=== PATIENT | male | born 1975 | race Caucasian/White ===

== ENCOUNTER 2024-08-15 11:42 | Inpatient (IN) ==
--- OUTSIDE RECORDS SUMMARY | 2024-08-15 11:56 | External Medical Summary | Summary of Care ---
Author Name Unknown Organization [facility] Address [address] [place] [address] Phone [phone] Care Team Providers Care Metal Machine Setter Name Role Phone Maki Buckley PA-C Primary Care Pro vider Encounter Details Date Type Department Care Team (Late st Contact Info) Description 08/13/2024 Orders Only Radiology, [facility] [address] [place] [id number] Requisition, External Radiology [address] [place] [address] Cough, unspecified*; Dyspnea, unspecified Allergies No known active allergiesdocumented as of this encounter (statuses as of 08/13/2024) Medications Medication Sig Dispensed Refills Start Date End Date Status metaxalone (SKELAXIN) 800 MG TabletIndications:Degene ration of lumbar or lumbosacral intervertebral disc,Cervicalgia Take one tablet by mouth up to 4 times a day as needed for muscle spasm On an empty stomach 40 Tab 2 01/04/2016 Active etodolac XL (LODINE XL) 500 MG TB24 Take 2 Tabs by mouth daily. 60 Tab 1 02/27/2017 Active HYDROcodone-acetaminophe n 5-325 mg per tab 5-325 MG per tablet Take 1 Tab by mouth every 6 hours as needed for Pain, Mild. 36 Tab 02/27/2017 Active documented as of this encounter (statuses as of 08/13/2024) Active Problems Problem Noted Date Diagnosed Date S/P nasal septoplasty 02/02/2015 Subjective tinnitus 12/23/2014 Sensorineural hearing loss, bilateral 12/23/2014 Nasal septal deviation 11/09/2014 Otitis externa due to herpes zoster Dizziness and giddiness Degeneration of lumbar or lumbosacral interverte bral disc Cervicalgia documented as of this encounter (statuses as of 08/13/2024) Social History Tobacco Use Types Packs/Day Years Used Date Smoking Tobacco: Never Smokeless Tobacco: Never Alcohol Use Standard Drinks/Week Comments No 0 (1 standard drink = 0.6 oz pur e alcohol) Utilities Answer Date Recorded Do you have trouble paying y our heating, water, or electric bill? (Adult - for ages 18 years and over) Not on file 2024 Is your family able to pay t he heat, water, or electric bill? (Household - for ages 0-17 years) Not on file 2024 Does your family have access to good internet? (Household - for ages 0-17 years) Not on file 2024 Social Connections Answer Date Recorded How often do you feel lonely or isolated from those around you? (Adult - for ages 18 years and over) Not on file 2024 Sex and Gender Information Value Date Recorded Sex Assigned at Not on file Gender Identity Not on file Sexual Orientation Not on file Job Start Date Occupation Industry Not on file Not on file Not on file documented as of this encounter Plan of Treatment Pending Results Name Type Priority Associated Diagnoses Date /Time XR CHEST 2 VIEWS Medical Imaging Routine Cough, unspecified Dyspnea, unspecified 08/13/2024 10:01 AM EDT Health Maintenance Due Date Last Done Comments HIV Screening 1988 Hepatitis C Screening 1991 DTap/Tdap Vaccines (1 - Tdap) 1992 Hepatitis B Vaccine (1 of 3 - 19+ 3-dose series) 1992 Depression Screening 01/04/2017 01/04/2016 Cologuard 2018 Colonoscopy 2018 Colorectal Cancer Screening 2018 Fecal Occult Blood Test 2018 Sigmoidoscopy 2018 Zoster Vaccines (1 of 2) 2023 Lipid Panel 06/19/2023 06/19/2018 COVID-19 Vaccine (4 - 2023-2 5 season) 2024 10/02/2021, 03/24/2021, 03/03/2021 Influenza Vaccine (FLU shot) (#1) 2024 HPV (Gardasil) Vaccine Aged Out No lo nger eligible based on patient's age to complete this topic MENINGOCOCCAL (MENACTRA/MENVEO) Aged Out No longer eligible b ased on patient's age to complete this topic Pneumococcal Vaccine: Pediatrics (0 to 5 Years) and At-Risk Patients (6 to 64 Years) Aged Out No longer eligible b ased on patient's age to complete this topic documented as of this encounter Medical Devices Not on filedocumented as of this encounter Visit Diagnoses Diagnosis Cough, unspecified- Primary Dyspnea, unspecified documented in this encounter Care Teams Metal Machine Setter Relationship Specialty Start Date End Date Maki Buckley PA-C PCP - General Physician Corrosion Engineer 08/08/18 documented as of this encounter
--- OUTSIDE RECORDS SUMMARY | 2024-08-15 11:56 | External Medical Summary | Summary of Care ---
Author Name Unknown Organization [facility] Address [address] [place] [address] Phone [phone] Care Team Providers Care Damascener Name Role Phone Maki Buckley PA-C Primary Care Pro vider Reason for Visit * Reason Onset Date Comments MyCode Consent 08/13/2024 Encounter Details Date Type Department Care Team (Late st Contact Info) Description 08/13/2024 Orders Only [facility] Department [address] [place], [place] [id number] Cristel Pinon CHRA MyCode Research Other*[id number]* Allergies No known active allergiesdocumented as of [...] on file documented as of this encounter Progress Notes * Cristel Pinon CHRA - 08/13/2024 10:01 AM EDT MyCode Consent Documentation Gaudencio Gottlieb Marjorie provided consent/authorization to participate in the [employer]. documented in this encounter Plan of Treatment Scheduled Orders Name Type Priority Associated Diagnoses Orde r Schedule MYCODE INITIAL ADULT Lab Routine MyCode Research Other*[id number] Expected: 08/13/2024 (Approximate), Expires: 09/02/2025 Health Maintenance Due Date Last Done Comments HIV Screening 1988 Hepatitis C Screening 1991 DTap/Tdap Vaccines (1 - Tdap) 1992 Hepatitis B Vaccine (1 of 3 - 19+ 3-dose series) 1992 Depression Screening 01/04/2017 01/04/2016 Cologuard 2018 Colonoscopy 2018 Colorectal Cancer Screening 2018 Fecal Occult Blood Test 2018 Sigmoidoscopy 2018 Zoster Vaccines (1 of 2) 2023 Lipid Panel 06/19/2023 06/19/2018 COVID-19 Vaccine (2023-2 5 season) 2024 10/02/2021, 03/24/2021, 03/03/2021 Influenza [...] as of this encounter Visit Diagnoses Diagnosis MyCode Research Other*[id number]- Primary documented in this encounter Care Teams Damascener Relationship Specialty Start Date End Date Maki Buckley PA-C PCP - General Physician Ferry Boat Captain 08/08/18 documented as of this encounter
--- NOTE | 2024-08-15 11:58 | Emergency Department Note ---
Impression & Plan CAP (community acquired pneumonia), Transaminitis, Dyspnea, Hypoxia ED Provider Note NAME: MICHAEL MENESES AGE: 49 SEX: M : 1975 ARRIVES VIA: Walk-In INFORMANT: Patient, ED PROVIDER(S): Zack Downey MD CHIEF COMPLAINT: Shortness of breath MEDICAL DECISION MAKING: Patient presents due to concern for worsening dyspnea. IV was established and blood work is obtained along with an EKG troponin chest x-ray BioFire also obtained patient was treated symptomatically with DuoNeb treatments IV fluids and steroids. Patient's blood work shows a normal white count H&H and platelet count kidney function is unremarkable. Mild transaminitis with an AST and ALT of 49 and 67 respectively. No sore throat. BioFire negative. Chest x-ray does show a left upper lobe pneumonia. Patient did undergo an ambulatory pulse ox trial and did desat into the mid to high 80s. The patient is willing to stay in hospital at this time. Patient was ordered IV Rocephin and p.o. azithromycin. Xopenex also ordered as a treatment via nebulizer. I did speak the on-call hospitalist service Dr. Faith and the patient was admitted to the medicine service. Critical Care: I have personally spent 35 minutes of critical care time in direct management of this patient. This includes bedside care, interpretation of diagnostic studies, and testing, discussion with consultants, patient, and family members, and other require inpatient management activities. This 35 minutes is in excess of all separately billable procedures. Discussion w/ other healthcare providers: Dr. Faith inpatient medicine service Prior /Outside records reviewed: None Differential diagnosis: Reactive airway disease, pneumonia, pneumothorax, COPD, CHF, ACS, pulmonary embolism, musculoskeletal, GERD as well as other pathologies were considered. Diagnostics, as interpreted by me: ECG: Sinus with PACs pattern of bigeminy, rate of 93, normal intervals, left axis deviation no ST elevations. Cardiac monitoring: An order was placed for continuous cardiac monitoring. The monitor shows a rate of 97 with sinus rhythm. Patient was placed on pulse oximetry Medical decision rules: None Imaging studies: I informally interpreted the patient's chest x-ray shows left upper lobe pneumonia with formal report to follow. HPI: Patient presents due to concern for shortness of breath. Patient reports that he developed some cough and respiratory symptoms beginning on Saturday. Patient states that they progressively got worse over the week was seen by his PCP on started on doxycycline and given an albuterol inhaler. Patient has been alternating ibuprofen and Tylenol every 4 hours for fever with a Tmax of 103. Patient states that he does have a centralized chest pressure that he has had with his illness but no exertional change no leg swelling or calf pain no history of DVT or PE and the patient denies any recent surgeries procedures or hospitalizations. Patient denies any recent prolonged car plane travel. Patient reports that the albuterol was not helping at all except this morning when he woke he felt very winded and had associated difficulty with breathing and the albuterol did seem to help. Patient states he has had slight productive cough but no reported discolored sputum. Patient is a non-smoker. PAST MEDICAL HISTORY: See Below PAST SURGICAL HISTORY: See Below SOCIAL HISTORY: See Below HOME MEDICATIONS: See Below ALLERGIES: See Below VITALS: See Below PHYSICAL EXAMINATION: GENERAL: Conversational dyspnea noted, nontoxic. EYE EXAM: Normal conjunctiva. PERRL, no anisocoria and EOM's grossly intact w/o pain. OROPHARYNX: Moist mucus membranes, grossly normal dentition. NECK: Trachea midline, no stridor. LUNGS: Slight expiratory wheeze in the upper lung pike. No obvious rhonchi or crackles. Increased work of breathing. HEART: NSR, no MRG. ABDOMEN: Abdomen soft, non-tender, no masses, no rebound or guarding. BACK: No CVA TTP. SKIN: No rashes and no bruising. UPPER EXTREMITIES: Upper extremities are grossly normal. LOWER EXTREMITIES: Grossly normal, no edema. Negative Homans' sign bilaterally. Reactive airway disease, pneumonia, pneumothorax, COPD, CHF, ACS, pulmonary embolism, musculoskeletal, GERD as well as other pathologies were considered. NEURO EXAM: A&O x3, cranial nerves II-XII grossly intact, normal speech, moves all 4 extremities. Past Med/Surg History Problem List (Updated 08/16/24 @ 13:09 by Zack Downey MD) Hypoxia (Acute) Dyspnea (Acute) Transaminitis (Acute) CAP (community acquired pneumonia) (Acute) Well adult exam Pain in Achilles tendon Pain of left heel Chronic back pain Lumbar strain LLQ abdominal pain Encounter for pre-operative examination Medical History (Updated 08/16/24 @ 13:09 by Zack Downey MD) History of anesthesia reaction GENERALIZED BODY ACHES FOR COUPLE DAYS POST OP-WAS TOLD FROM ANESTHESIA-3 YRS AGO PHILIP THOMAS Trigger finger RIGHT Hyperlipidemia NO MEDS-DIET MANAGED Surgical History History of nasal septoplasty Family History Father Family history of diabetes mellitus Social History Smoking Status: Never smoker Second Hand Exposure: No; Do You Dip or Chew Tobacco: No; Tobacco Cessation Education Requested by Patient: No Hx Alcohol Use: No Hx Substance Use: No Preferred Language: Ukrainian Communication Ability: Effective Technical Service Representative Required: No Beliefs That Will Affect Care: None marital status: Current Living Situation: Spouse current occupational status: employed current occupation: Electrical estimater How many Children do You have: 2 Other Information That Helps Us Care for You: No Feels Safe at Home: Yes Childhood Exposure to Second-Hand Smoke: No Diet: regular caffeine: Yes Dental Care, Regularly: Yes Physical Activity Frequency: Does not Exercise Seatbelt Use: always Assistive Devices: None Allergies Allergies Allergy/AdvReac Type Severity Reaction Status Date / Time No Known Allergies Allergy Verified 07/27/24 08:54 Home Meds Previous Rx's Medication Instructions Recorded ibuprofen 800 mg tablet 800 mg PO BID PRN Pain #60 tabs 02/19/22 metaxalone 800 mg tablet 800 mg PO TID PRN Pain #15 tabs 07/24/22 famotidine 20 mg tablet 20 mg PO BID #60 tabs 07/27/24 albuterol sulfate 90 mcg/actuation 2 puff inhalation QID PRN 08/13/24 aerosol inhaler shortness of breath or wheezing #8.5 grams doxycycline hyclate 100 mg capsule 100 mg PO BID 5 days #10 caps 08/13/24 Results & Data (ED) Vital Signs Vital Signs - 24 hr 08/15/24 13:22 08/15/24 13:28 08/15/24 13:30 Pulse Rate 72 96 H 78 Pulse Rate from SpO2 Sensor 77 80 Pulse Rhythm Regular Respiratory Rate 23 18 19 Blood Pressure 131/80 125/72 Blood Pressure Mean 97 99 Pulse Oximetry 94 94 Oxygen Delivery Method Room Air 08/15/24 14:00 08/15/24 14:30 Pulse Rate 101 H 101 H Pulse Rate from SpO2 Sensor 101 H 102 H Pulse Rhythm Respiratory Rate 25 H 26 H Blood Pressure 129/79 152/74 H Blood Pressure Mean 100 100 Pulse Oximetry 99 92 Oxygen Delivery Method Home Medications Current Medication List: was personally reviewed by me Laboratory Data Attestation: I reviewed the patient's lab results. 08/16/24 05:40 08/16/24 05:40 Lab Results 08/15/24 08/15/24 Range/Units 12:47 13:15 WBC 8.87 (4.8-10.8) K/ul RBC 5.04 (4.70-6.10) M/uL Hgb 14.6 (14.0-18.0) g/dl Hct 43.5 (42.0-52.0) % MCV 86.3 (80.0-100.0) fL MCH 29.0 (25.0-34.0) pg MCHC 33.6 (32.0-36.0) g/dL RDW Std Deviation 42.1 (36.4-46.3) fL RDW Coeff of Ama 13.3 (11.5-14.5) % Plt Count 370 (130-400) K/uL MPV 8.7 L (9.4-12.4) fL Immature Gran % (Auto) 0.2 % Neut % (Auto) 73.5 % Lymph % (Auto) 13.1 % [place] % (Auto) 11.7 % Eos % (Auto) 0.9 % Baso % (Auto) 0.6 % Neut # (Auto) 6.52 H (1.40-6.50) K/uL Lymph # (Auto) 1.16 L (1.20-3.40) K/uL [place] # (Auto) 1.04 H (0.11-0.59) K/uL Eos # (Auto) 0.08 (0.00-0.50) K/uL Baso # (Auto) 0.05 (0.00-0.20) K/uL Immature Gran # (Auto) 0.02 (0.01-0.20) K/uL PT 10.8 (9.0-12.0) Seconds INR 1.0 (0.9-1.1) APTT 30 (21-31) Seconds PTT Ratio 1.1 Sodium 138 (136-145) mmol/L Potassium 4.0 (3.5-5.1) mmol/L Chloride 102 (98-107) mmol/L Carbon Dioxide 28 (21-32) mmol/L Anion Gap 8 (3-11) BUN 11 (6-23) mg/dl Creatinine 1.08 (0.6-1.4) mg/dl Est Cr Clr Drug Dosing 103.8 ml/min Est GFR ( Amer) 91.6 ml/min Est GFR (Non-Af Amer) 79.0 ml/min BUN/Creatinine Ratio 10.2 (10-20) Glucose 91 (70-99(Fasting)) mg/dl Calcium 9.3 (8.6-10.3) mg/dl Magnesium 2.2 (1.7-2.4) mg/dl Total Bilirubin 0.4 (0.2-1.0) mg/dl AST 49 H (13-39) U/L ALT 67 H (7-52) U/L Alkaline Phosphatase 101 (34-104) U/L Troponin I High Sens 9.4 (0-20) pg/ml Total Protein 8.2 (6.0-8.3) gm/dl Albumin 4.0 (3.4-5.0) gm/dl Globulin 4.2 H (2.5-4.0) gm/dl Albumin/Globulin Ratio 1.0 (0.9-2) Adenovirus (PCR) Not Detected (NotDetected) B. pertussis DNA (PCR) Not Detected (NotDetected) B.parapertussis DNA PCR Not Detected (NotDetected) C. pneumoniae DNA (PCR) Not Detected (NotDetected) Coronavirus OC43 (PCR) Not Detected (NotDetected) Coronavirus HKU1 (PCR) Not Detected (NotDetected) Coronavirus 229E (PCR) Not Detected (NotDetected) SARS-CoV-2 (PCR) Not Detected (NotDetected) Coronavirus NL63 (PCR) Not Detected (NotDetected) Human Metapneumovir PCR Not Detected (NotDetected) Influenza Type A (PCR) Not Detected (NotDetected) Influenza Type B (PCR) Not Detected (NotDetected) M. pneumoniae (PCR) Not Detected (NotDetected) Parainfluenza 1 (PCR) Not Detected (NotDetected) Parainfluenza 2 (PCR) Not Detected (NotDetected) Parainfluenza 3 (PCR) Not Detected (NotDetected) Parainfluenza 4 (PCR) Not Detected (NotDetected) RSV (PCR) Not Detected (NotDetected) Entero/Rhino (PCR) Not Detected (NotDetected) Administered Medications Acetaminophen (Acetaminophen 325 Mg Tab) 650 mg PO Q4H PRN PRN Reason: pain/fever Stop: 09/14/24 17:03 Last Admin: 08/16/24 08:58 Dose: 650 mg Documented By: APR Albuterol (Albut/Ipratrop 3mg/0.5mg Neb 3 Ml Vial) 3 ml NEB Q6R PRN; Protocol PRN Reason: wheezing Stop: 09/14/24 16:03 Last Admin: 08/15/24 22:16 Dose: 3 ml Documented By: DJP Enoxaparin Sodium (Enoxaparin Inj 40 Mg/0.4 Ml Syr) 40 mg SQ Q24H MICHAEL Stop: 09/14/24 17:29 Last Admin: 08/15/24 18:39 Dose: Not Given Documented By: DLS Melatonin (Melatonin 3 Mg Tab) 3 mg PO HS PRN PRN Reason: Sleep Stop: 09/15/24 02:35 Last Admin: 08/16/24 02:56 Dose: 3 mg Documented By: CLG Discontinued Medications Albuterol (Albut/Ipratrop 3mg/0.5mg Neb 3 Ml Vial) 6 ml INH NOW STA Stop: 08/15/24 12:33 Last Admin: 08/15/24 13:15 Dose: 6 ml Documented By: KEDeyvi Doxycycline Hyclate (Doxycycline Hyclate 100 Mg Cap) 100 mg PO NOW STA Stop: 08/15/24 15:22 Last Admin: 08/15/24 15:28 Dose: 100 mg Documented By: CEF Sodium Chloride (Nss) 1,000 mls @ 999 mls/hr IV .Q1H1M MICHAEL Stop: 08/15/24 13:45 Last Infusion: 08/15/24 15:21 Dose: Infused Documented By: Admin: 08/15/24 13:14 Dose: 999 mls/hr Documented By: ROSIO Ceftriaxone Sodium (Rocephin) 2,000 mg in 50 mls @ 100 mls/hr IV NOW STA Stop: 08/15/24 15:50 Last Infusion: 08/15/24 16:08 Dose: Infused Documented By: Admin: 08/15/24 15:32 Dose: 100 mls/hr Documented By: CEF Lactated Ringer's (Lr) 1,000 mls @ 999 mls/hr IV .Q1H1M ONE Stop: 08/15/24 16:57 Last Infusion: 08/15/24 18:34 Dose: Infused Documented By: Admin: 08/15/24 16:14 Dose: 999 mls/hr Documented By: CEF Lactated Ringer's (Lr) 500 mls @ 999 mls/hr IV .Q31M ONE Stop: 08/15/24 16:27 Last Infusion: 08/15/24 18:34 Dose: Infused Documented By: Admin: 08/15/24 17:33 Dose: 999 mls/hr Documented By: ANABEL Ketorolac Tromethamine (Ketorolac Tromethamine 15 Mg/Ml Vial) 10 mg IV NOW ONE Stop: 08/15/24 12:33 Last Admin: 08/15/24 13:14 Dose: 10 mg Documented By: ROSIO Levalbuterol HCl (Levalbuterol 1.25 Mg/3 Ml Neb) 1.25 mg NEB NOW STA Stop: 08/15/24 15:22 Last Admin: 08/15/24 15:28 Dose: 1.25 mg Documented By: ELPIDIO Methylprednisolone (Methylprednisolone 125 Mg/2 Ml Vial) 125 mg IV NOW STA Stop: 08/15/24 12:33 Last Admin: 08/15/24 13:15 Dose: 125 mg Documented By: ROSIO Imaging Data Radiologist's Impression: Chest X-Ray 08/15/24 12:32 XR chest 1V portable CLINICAL HISTORY: Dyspnea TECHNIQUE: Single frontal radiograph of the chest was obtained. Comparison: None available at the time of this dictation. FINDINGS: No lines and tubes are seen. The cardiomediastinal silhouette is normal. Interspace opacity is in the left upper lung. No evidence of pleural effusion or pneumothorax. IMPRESSION: Airspace opacity in the left upper lung may represent aspiration or pneumonia. ACT 112: Negative or not required by law. Electronically signed by: James Fried M.D. 08/15/2024 1:14 PM Discharge Plan Visit Data Chief Complaint: Cough Stated Complaint: Cough, SOB ED Provider: Zack Downey Discharge Problem: CAP (community acquired pneumonia), Transaminitis, Dyspnea, Hypoxia Patient Disposition: Admitted As Inpatient Discharge Instructions Interventions: ED Discharge Assessment Last Done: 08/15/24 16:43 Discharge Problem: CAP (community acquired pneumonia) Qualifiers: Laterality: left Lung location: upper lobe of lung Qualified Code(s): J18.9 - Pneumonia, unspecified organism Dyspnea Qualifiers: Dyspnea type: shortness of breath Qualified Code(s): R06.02 - Shortness of breath
[2024-08-15 13:02] LABS: Basophils # (auto) 0.05 K/uL (0.00-0.20); Basophils % (auto) 0.6 %; Eosinophils # (auto) 0.08 K/uL (0.00-0.50); Eosinophils % (auto) 0.9 %; Hematocrit (blood only) 43.5 % (42.0-52.0); Hemoglobin 14.6 g/dl (14.0-18.0); Immature Granulocytes # (auto) 0.02 K/uL (0.01-0.20); Immature Granulocytes % (auto) 0.2 %; Lymphocytes # (auto) 1.16 K/uL (1.20-3.40); Lymphocytes % (auto) 13.1 %; Mean Corpuscular Hgb Conc 33.6 g/dL (32.0-36.0); Mean Corpuscular Volume 86.3 fL (80.0-100.0); Mean Platelet Volume 8.7 fL (9.4-12.4); Monocytes # (auto) 1.04 K/uL (0.11-0.59); Monocytes % (auto) 11.7 %; Neutrophils # (auto) 6.52 K/uL (1.40-6.50); Neutrophils % (auto) 73.5 %; Platelet Count 370 K/uL (130-400); RDW Coefficient of Variation 13.3 % (11.5-14.5); RDW Standard Deviation 42.1 fL (36.4-46.3); Red Blood Count 5.04 M/uL (4.70-6.10); White Blood Count 8.87 K/ul (4.8-10.8)
[2024-08-15] MEDS: SODIUM CHLORIDE 0.9% 1,000 ML IV SCH (13:14)
[2024-08-15] MEDS: KETOROLAC TROMETHAMINE 15 MG/ML VIAL IV ONE (13:14)
[2024-08-15] MEDS: methylPREDNISolone 125 MG/2 ML VIAL IV STA (13:15)
[2024-08-15] MEDS: ALBUT/IPRATROP 3MG/0.5MG NEB 3 ML VIAL INH STA (13:15)
--- NOTE | 2024-08-15 13:16 | XRay Report ---
XR chest 1V portable CLINICAL HISTORY: Dyspnea TECHNIQUE: Single frontal radiograph of the chest was obtained. Comparison: None available at the time of this dictation. FINDINGS: No lines and tubes are seen. The cardiomediastinal silhouette is normal. Interspace opacity is in the left upper lung. No evidence of pleural effusion or pneumothorax. IMPRESSION: Airspace opacity in the left upper lung may represent aspiration or pneumonia. ACT 112: Negative or not required by law. Electronically signed by: James Fried M.D. 08/15/2024 1:14 PM
[2024-08-15 13:21] LABS: BUN Creatinine Ratio 10.2 (10-20); Bilirubin,Total 0.4 mg/dl (0.2-1.0); Calcium 9.3 mg/dl (8.6-10.3); Creatinine Clr Calc Pharmacy 103.8 ml/min; Est GFR (African American) 91.6 ml/min; Globulin 4.2 gm/dl (2.5-4.0); Magnesium 2.2 mg/dl (1.7-2.4); Total Protein 8.2 gm/dl (6.0-8.3)
[2024-08-15 13:27] LABS: Troponin I High Sensitivity 9.4 pg/ml (0-20)
[2024-08-15 13:31] LABS: Partial Thromboplastin Ratio 1.1; Partial Thromboplastin Time 30 Seconds (21-31); Prothrombin Time 10.8 Seconds (9.0-12.0)
[2024-08-15 14:20] LABS: Adenovirus PCR Not Detected (NotDetected); Bordetella parapertussis PCR Not Detected (NotDetected); Bordetella pertussis PCR Not Detected (NotDetected); Chlamydia pneumoniae PCR Not Detected (NotDetected); Coronavirus 229E PCR Not Detected (NotDetected); Coronavirus CoV-2 (COVID19)PCR Not Detected (NotDetected); Coronavirus HKU1 PCR Not Detected (NotDetected); Coronavirus NL63 PCR Not Detected (NotDetected); Coronavirus OC43PCR Not Detected (NotDetected); Human Metapneumovirus PCR Not Detected (NotDetected); Influenza A PCR Not Detected (NotDetected); Influenza B PCR Not Detected (NotDetected); Mycoplasma pneumoniae PCR Not Detected (NotDetected); Parainfluenza Virus 1 PCR Not Detected (NotDetected); Parainfluenza Virus 2 PCR Not Detected (NotDetected); Parainfluenza Virus 3 PCR Not Detected (NotDetected); Parainfluenza Virus 4 PCR Not Detected (NotDetected); Respiratory Syncytial VirusPCR Not Detected (NotDetected); Rhinovirus/Enterovirus PCR Not Detected (NotDetected)
[2024-08-15] MEDS: DOXYCYCLINE HYCLATE 100 MG CAP PO STA (15:28)
[2024-08-15] MEDS: LEVALBUTEROL 1.25 MG/3 ML NEB NEB STA (15:28)
[2024-08-15] MEDS: cefTRIAXone SODIUM 2,000 MG/50 ML BAG IV STA (15:32)
--- NOTE | 2024-08-15 15:36 | History & Physical Report ---
Date of Service August 15, 2024 Assessment & Plan (1) CAP (community acquired pneumonia): Plan: Community-acquired pneumonia See the bedside. Patient feels improved after getting fluids. He is tachycardic, tachypneic, with a fever greater than 100 today. Received 1 L of fluids, will give 1500 cc to meet total 2345 cc 30 cc/kg of ideal body weight goal. Blood cultures deferred as patient has received antibiotics prior Admitted on Rocephin. Doxycycline deferred as patient continued to clinically worsen despite 72 hours of treatment with this Chest x-ray consistent with right upper lobe pneumonia MRSA nare pending, if positive will add vancomycin Sputum culture pending No pleuritic pain, no leg swelling, no hypoxia and symptoms began with cold- like symptoms and opacity noted on chest x-ray consistent with infectious etiology. Lower suspicion for PE, CTA deferred on admission (2) Transaminitis: Plan: Transaminitis With volume contraction? Mild shock liver fluids as noted trend BMP. Denies history of alcohol use Trended No right upper quadrant pain Plan DVT prophylaxis: Lovenox Diet: Regular Disposition: Medical surgical CODE STATUS: Full code History of Present Illness Primary Care Provider: DO Gaudencio Bhardwaj Marjorie is a 49-year-old male with a past medical history of lumbar back pain presents with shortness of breath, cough progressing over the last 6 days. He was started on doxycycline and given albuterol 2 days ago however has continued to have fevers shortness of breath and cough. Has developed central chest pain which does not change on exertion. Due to worsening and persistent symptoms he presents to the ER for evaluation. He does not have a leukocytosis. Creatinine is normal. Trace transaminitis. Bio fire is negative. Chest x-ray shows a left upper lung airspace opacity consistent with aspiration/pneumonia. He is recommended for admission for me acquired pneumonia failing outpatient antibiotics. He was on doxycycline as outpatient, was placed on Rocephin/Doxy on admission. Due to significant wheezing he was given methylprednisolone load. MRSA nares pending Seen at the bedside. Symptoms started about a week ago with fever 103.6*. Saw his PCP and was placed on doxy and an inhaler for pneumonia. Worsening cough and dyspnea over the lat few days, although fever seems to have mostly improved but was 100.2*F this morning. No chest pain. No pain with breathing. No inspiratory pain. Deep breathing induces cough. No leg pain or calf pain. No leg swelling. NO rashes or tick bites Diminished appetite most of the week, and not eating and drinking much th elast few days. has still been voiding normally. No dysuria. Medical History: Reviewed Medications: Reviewed Surgical History: Reviewed Family history: Reviewed Allergies: Reviewed. Social History: No tobacco use, no etoh use Code Status: Full Allergies Allergy/AdvReac Type Severity Reaction Status Date / Time No Known Allergies Allergy Verified 07/27/24 08:54 Home Medications Medication Instructions Recorded Confirmed Type ibuprofen 800 mg tablet 800 mg PO BID PRN Pain #60 tabs 02/19/22 08/13/24 Rx metaxalone 800 mg tablet 800 mg PO TID PRN Pain #15 tabs 07/24/22 08/13/24 Rx famotidine 20 mg tablet 20 mg PO BID #60 tabs 07/27/24 08/13/24 Rx albuterol sulfate 90 mcg/actuation 2 puff inhalation QID PRN 08/13/24 08/13/24 Rx aerosol inhaler shortness of breath or wheezing #8.5 grams doxycycline hyclate 100 mg capsule 100 mg PO BID 5 days #10 caps 08/13/24 08/13/24 Rx Past Med/Surg History Problem List (Updated 08/15/24 @ 16:03 by Jeremy Faith MD) Transaminitis CAP (community acquired pneumonia) Well adult exam Pain in Achilles tendon Pain of left heel Chronic back pain Lumbar strain LLQ abdominal pain Encounter for pre-operative examination Medical History (Updated 08/15/24 @ 16:03 by Jeremy Faith MD) History of anesthesia reaction GENERALIZED BODY ACHES FOR COUPLE DAYS POST OP-WAS TOLD FROM ANESTHESIA-[facility] Trigger finger RIGHT Hyperlipidemia NO MEDS-DIET MANAGED Surgical History History of nasal septoplasty Family History Father Family history of diabetes mellitus Social History (Updated 07/27/24 @ 08:57 by Mary Pires) Smoking Status: Never smoker Second Hand Exposure: No; Do You Dip or Chew Tobacco: No (QUIT IN HIGH SCHOOL); Hx Alcohol Use: No (RARELY) Hx Substance Use: No Preferred Language: Spanish Communication Ability: Effective Track [employer] Required: No Beliefs That Will Affect Care: None marital status: Current Living Situation: Family current occupational status: employed current occupation: Electrical estimater How many Children do You have: 2 Feels Safe at Home: Yes Childhood Exposure to Second-Hand Smoke: No Diet: regular caffeine: Yes Dental Care, Regularly: Yes Physical Activity Frequency: Does not Exercise Seatbelt Use: always Assistive Devices: Contacts and Glasses Physical Exam Physical Exam: General: A&Ox3. NAD. Cooperative. Appears ill but nontoxic HEENT: Atraumatic, normocephalic. Vision/hearing intact. PERLAA> Pulm: scattered end expiratory wheezing. -rales. Symmetrical chest rise. No increased work of breathing. No respiratory distress. Cardiac: regular, tachycardic, -mrg. Radial pulses intact and symmetrical. Abdominal: Nontender, nondistended, soft. BS present. Results & Data Results & Data Vital Signs (Past 12 Hours) Vital Signs Temp Pulse Resp BP Pulse Ox O2 Del Method 08/15/24 14:30 101 H 26 H 152/74 H 92 08/15/24 14:00 101 H 25 H 129/79 99 08/15/24 13:30 78 19 125/72 08/15/24 13:28 96 H 18 94 Room Air 08/15/24 13:22 72 23 131/80 94 08/15/24 12:53 96 H 08/15/24 11:44 36.6 C 102 H 18 136/80 94 Room Air PG Care Time/CCT Total # of Minutes Spent Total Time Spent with Patient: Total time spent is greater than 50% in coordination of care (as documented) at patient's floor/unit and/or counseling patient: Coding Level of Care Code 71834 INT INP/OBS CARE 2/55MIN Diagnoses CAP (community acquired pneumonia) J18.9 Transaminitis R74.01
[2024-08-15] MEDS: LACTATED RINGER'S 1,000 ML IV ONE (16:14)
[2024-08-15] MEDS ORDERED: ACETAMINOPHEN 325 MG TAB PO PRN (17:04)
[2024-08-15] MEDS: LACTATED RINGER'S 500 ML IV ONE (17:33)
[2024-08-15] MEDS: ENOXAPARIN INJ 40 MG/0.4 ML SYR SQ SCH (18:39)
[2024-08-15] MEDS: ALBUT/IPRATROP 3MG/0.5MG NEB 3 ML VIAL NEB PRN (22:16)
[2024-08-16] MEDS: MELATONIN 3 MG TAB PO PRN (02:56)
[2024-08-16 06:47] LABS: Basophils # (auto) 0.01 K/uL (0.00-0.20); Basophils % (auto) 0.1 %; Hematocrit (blood only) 37.6 % (42.0-52.0); Hemoglobin 12.5 g/dl (14.0-18.0); Immature Granulocytes # (auto) 0.05 K/uL (0.01-0.20); Immature Granulocytes % (auto) 0.5 %; Lymphocytes # (auto) 0.94 K/uL (1.20-3.40); Lymphocytes % (auto) 9.5 %; Mean Corpuscular Hemoglobin 28.7 pg (25.0-34.0); Mean Corpuscular Hgb Conc 33.2 g/dL (32.0-36.0); Mean Corpuscular Volume 86.2 fL (80.0-100.0); Mean Platelet Volume 9.3 fL (9.4-12.4); Monocytes # (auto) 0.52 K/uL (0.11-0.59); Monocytes % (auto) 5.2 %; Neutrophils # (auto) 8.41 K/uL (1.40-6.50); Neutrophils % (auto) 84.7 %; Platelet Count 346 K/uL (130-400); RDW Coefficient of Variation 13.1 % (11.5-14.5); RDW Standard Deviation 41.2 fL (36.4-46.3); Red Blood Count 4.36 M/uL (4.70-6.10); White Blood Count 9.93 K/ul (4.8-10.8)
[2024-08-16 07:10] LABS: BUN Creatinine Ratio 16.9 (10-20); Creatinine Clr Calc Pharmacy 126.1 ml/min; Est GFR (African American) 114.7 ml/min; Potassium 4.1 mmol/L (3.5-5.1)
[2024-08-16] MEDS: ACETAMINOPHEN 325 MG TAB PO PRN (08:58)
--- NOTE | 2024-08-16 14:53 | Hospitalist Progress Note ---
Date of Service August 16, 2024 Assessment & Plan (1) CAP (community acquired pneumonia): Plan: DAVIAN failed outpatient monotherapy with doxycycline now on rocephin, day #2 of such fevers have resolved will obtain repeat 2-view cxr today mucinex tessalon stop nebs - he report no symptom relief with such, and they just cause side effects cont rocephin cont doxy consider levaquin PO at discharge MRSA swab negative - thus, defer on MRSA coverage defer also on gram negative coverage check urine legionella ag check mycoplasma titers sputum cx, if any sputum is produced incentive magalys flutter valve watch overnight (2) Transaminitis: Plan: etiology uncertain recheck ast/alt in am Plan elevated blood glucose -- perhaps due to steroids yesterday, but check a1c in am - r/o pre-DM or DM DVT proph - lovenox updated at bedside likely d/c home tomorrow Admission and Anticipated Discharge Date Admission Date: August 15, 2024 Subjective patient reports some mild dyspnea on exertion only ongoing cough - dry no sputum no chest pain, but some mild chest tightness fever yesterday, but none today he asks if he could have fungal pneumonia and in particular blastomycosis (he was reading about fungal infection on-line) eating well today, which is improved from at home mild diarrhea no vomiting Review of Systems Review of Systems: gen - no fevers or chills today cv - no substernal pain pulm - no sputum; states albuterol makes him anxious & jittery GI - no N/V Physical Exam Physical Exam: gen - obese, coughing, but no distress mouth - mild posterior throat erythema neck - no JVD heart - tachy, s1 s2, no murmur lungs - decreased BS left upper lobe, mild rales RLL, no wheezing, fair airation; no distress abd - soft NT ND BS+ ext - no edema, pulses 2+ b/l Results & Data Results & Data Vital Signs (Past 12 Hours) Vital Signs Temp Pulse Resp BP Pulse Ox O2 Del Method 08/16/24 13:32 74 16 94 Room Air 08/16/24 07:35 Room Air 08/16/24 07:09 36.7 C 70 16 125/74 92 Room Air Laboratory Results Laboratory Results - last 24 hr 08/16/24 08/16/24 05:40 17:07 WBC 9.93 RBC 4.36 L Hgb 12.5 L Hct 37.6 L MCV 86.2 MCH 28.7 MCHC 33.2 RDW Std Deviation 41.2 RDW Coeff of Ama 13.1 Plt Count 346 MPV 9.3 L Immature Gran % (Auto) 0.5 Neut % (Auto) 84.7 Lymph % (Auto) 9.5 Mccracken % (Auto) 5.2 Eos % (Auto) 0.0 Baso % (Auto) 0.1 Neut # (Auto) 8.41 H Lymph # (Auto) 0.94 L Mccracken # (Auto) 0.52 Eos # (Auto) 0.00 Baso # (Auto) 0.01 Immature Gran # (Auto) 0.05 Sodium 139 Potassium 4.1 Chloride 105 Carbon Dioxide 25 Anion Gap 9 BUN 15 Creatinine 0.89 Est Cr Clr Drug Dosing 126.1 Est GFR ( Amer) 114.7 Est GFR (Non-Af Amer) 99.0 BUN/Creatinine Ratio 16.9 Glucose 145 H Calcium 9.0 Urine Legionella Ag Pending PG Care Time/CCT Total # of Minutes Spent Total Time Spent with Patient: Total time spent is greater than 50% in coordination of care (as documented) at patient's floor/unit and/or counseling patient: Coding Level of Care Code 43847 SUB INP/OBS CARE 2/35MIN Diagnoses CAP (community acquired pneumonia) J18.9 Laterality: left Lung location: upper lobe of lung Transaminitis R74.01 (1) CAP (community acquired pneumonia) Laterality: left Lung location: upper lobe of lung Qualified Code(s): J18.9 - Pneumonia, unspecified organism
[2024-08-16] MEDS: cefTRIAXone SODIUM 2,000 MG/50 ML BAG IV SCH (15:07)
[2024-08-16 15:19] VITALS: O2SAT 93
[2024-08-16] MEDS: DOXYCYCLINE HYCLATE 100 MG CAP PO STA (16:06)
[2024-08-16] MEDS: BENZONATATE 100 MG CAPSULE PO SCH (16:06)
[2024-08-16] MEDS: guaiFENesin 600 MG TABCR PO SCH (16:06)
--- NOTE | 2024-08-16 17:54 | XRay Report ---
XR chest 2V PA/lateral CLINICAL HISTORY: DAVIAN pneumonia, RLL rales, assess worsening pneumon TECHNIQUE: 2 views of the chest were obtained. Comparison: Comparison is made to chest radiograph 08/15/2024 FINDINGS: No lines and tubes are seen. The cardiomediastinal silhouette is normal. Airspace opacity in the left upper lobe is seen. It is similar in extent to prior exam. No evidence of pleural effusion or pneumo thorax. IMPRESSION: Redemonstration of left upper lobe airspace opacity compatible with pneumonia. ACT 112: Negative or not required by law. Electronically signed by: James Fried M.D. 08/16/2024 5:51 PM
[2024-08-17 06:40] LABS: BUN Creatinine Ratio 19.8 (10-20); Calcium 8.6 mg/dl (8.6-10.3); Creatinine Clr Calc Pharmacy 105.9 ml/min; Est GFR (African American) 93.7 ml/min; Est GFR (Non-African American) 80.9 ml/min; Potassium 3.8 mmol/L (3.5-5.1)
[2024-08-17 07:26] VITALS: BP 150/90; PULSE 58; RESP 19; TEMP 97.9
[2024-08-17 07:50] LABS: Estimated Average Glucose 140 mg/dl; Hemoglobin A1C 6.5 % (4.5-5.6)
--- NOTE | 2024-08-17 11:30 | Discharge Summary ---
Discharge Summary Date of Service August 17, 2024 Principal Dx & Hospital Course #1 = Principal Diagnosis (1) CAP (community acquired pneumonia): DAVIAN failed outpatient monotherapy with doxycycline now on rocephin, day #2 of such fevers have resolved will obtain repeat 2-view cxr today mucinex tessalon stop nebs - he report no symptom relief with such, and they just cause side effects cont rocephin cont doxy consider levaquin PO at discharge MRSA swab negative - thus, defer on MRSA coverage defer also on gram negative coverage check urine legionella ag check mycoplasma titers sputum cx, if any sputum is produced incentive magalys flutter valve watch overnight (2) Transaminitis: etiology uncertain recheck ast/alt in am (3) Type 2 diabetes mellitus: Plan elevated blood glucose -- perhaps due to steroids yesterday, but check a1c in am - r/o pre-DM or DM DVT proph - lovenox updated at bedside likely d/c home tomorrow Admission HPI Per Admitting Provider Gaudencio Amador is a 49-year-old male with a past medical history of lumbar back pain presents with shortness of breath, cough progressing over the last 6 days. He was started on doxycycline and given albuterol 2 days ago however has continued to have fevers shortness of breath and cough. Has developed central chest pain which does not change on exertion. Due to worsening and persistent symptoms he presents to the ER for evaluation. He does not have a leukocytosis. Creatinine is normal. Trace transaminitis. Bio fire is negative. Chest x-ray shows a left upper lung airspace opacity consistent with aspiration/pneumonia. He is recommended for admission for me acquired pneumonia failing outpatient antibiotics. He was on doxycycline as outpatient, was placed on Rocephin/Doxy on admission. Due to significant wheezing he was given methylprednisolone load. MRSA nares pending Seen at the bedside. Symptoms started about a week ago with fever 103.6*. Saw his PCP and was placed on doxy and an inhaler for pneumonia. Worsening cough and dyspnea over the lat few days, although fever seems to have mostly improved but was 100.2*F this morning. No chest pain. No pain with breathing. No inspiratory pain. Deep breathing induces cough. No leg pain or calf pain. No leg swelling. NO rashes or tick bites Diminished appetite most of the week, and not eating and drinking much th elast few days. has still been voiding normally. No dysuria. Medical History: Reviewed Medications: Reviewed Surgical History: Reviewed Family history: Reviewed Allergies: Reviewed. Social History: No tobacco use, no etoh use Code Status: Full Discharge Exam gen - obese, coughing, but no distress mouth - mild posterior throat erythema neck - no JVD heart - tachy, s1 s2, no murmur lungs - decreased BS left upper lobe, mild rales RLL, no wheezing, fair ai ration; no distress abd - soft NT ND BS+ ext - no edema, pulses 2+ b/l Discharge Plan Discharge Items Patient Disposition: Home - Self-Care Reason For Visit: Pneumonia Discharge Diagnosis: 1. left upper lobe pneumonia 2. type 2 diabetes - new diagnosis - hemoglobin a1c 6.5% 3. abnormal liver function tests - repeat levels needed 1 week Activity: As commented below Activity Comment: gradually increase your activities over the next 1-2 weeks Exercise/Sports: Wait until after follow-up appointment Non-emergency contact: Primary Care Provider Call non-emergency contact if: you have any medication questions, your symptoms worsen and you have a fever Follow-up/Referrals: Mera Sandoval DO [Primary Care Provider] - (1 week ) Diet: Carb Consistent or DM2 Ambulatory Orders: Hepatic Function (Liver) Panel (Routine) Timeframe: 1 Week Location: Determined by Patient Ordered By: Vincent Kramer Attending Provider Instructions: Mr Amador, You were hospitalized due to pneumonia. The pneumonia was primarily in the upper lobe of the left lung. You improved while here with IV antibiotics. Your oxygen levels remained stable/normal while hospitalized. In addition to the above we found that you have early, mild type 2 diabetes (see handouts) Your hemoglobin a1c was 6.5% (see handout). Your diabetes can likely be controlled with diet alone. We also saw mild elevation in 2 of your liver function tests. I suspect that they may be mildly high due to your infection. These will need to be repeated in about 1 week. If they remain elevated over time, however, it is possible that they are high due to something called fatty liver. Recommendations - 1. Please finish the previously prescribed doxycycline antibiotic. Just finish the bottle as directed. Know that this antibiotic rarely causes a rash if you are out in the sun frequently while taking it. Thus, use sunscreen and cover up over the next few days. 2. Please take an additional antibiotic starting TONIGHT called cefdinir. Take cefdinir 300mg twice daily x 5 days. Thus, you will be on 2 different antibiotics for your pneumonia. Prescription for this additional antibiotic called in for you. 3. Have a repeat chest x-ray in 1 month to ensure the pneumonia has completely cleared radiographically. Your family doctor can arrange this for you. 4. Due to the diabetes please check your blood sugar at least 1x/day. Every morning upon awakening is a good time to do it. On some days check it at another time - bedtime, before your evening meal, etc. Write these numbers down and show them to your family doctor. See handouts on hemoglobin a1c, diabetes meal planning, steps on how to check a blood sugar, etc. I have prescribed you a glucometer and the necessary supplies. 5. For cough - * prescription benzonatate 100-200mg every 8 hours as needed * [id number] mucinex up to 1200mg twice daily as needed/as desired 6. If desired you can also use the previously prescribed albuterol inhaler every 4-6 hours as needed for cough/congestion/wheezing. 7. Due to the abnormal liver function tests would abstain from alcohol. 8. Plan to take it easy for 2-3 days as you recover. You will have to use your best judgement about returning to work. You might be able to go back late this week depending on how you feel, but it could be longer. 9. Please use your incentive spirometer & flutter valve for a few days during your recovery. Follow-up - see your family doctor in 1 week Return to [facility] if - * you have recurrent fevers over 101 degrees * you develop severe diarrhea * you have worsening shortness of breath * you have severe nausea and/or vomiting * any other concerns It was our pleasure to care for you! Pending Studies at Discharge: Yes Studies:: urine study for legionella; blood test for mycoplasma (2 causes of bacterial pneumonia) Stand-Alone Forms: My [facility], Work/School Release, Smoking Cessation Medications and DC Order Prescriptions: New benzonatate 100 mg Capsule 100 - 200 mg PO TID PRN (Reason: cough) Qty: 30 0RF cefdinir 300 mg capsule 300 mg PO BID 5 Days Qty: 10 0RF (DME) blood-glucose meter [OneTouch Ultra2 Meter] [facility] See Rx Instructions .Route Qty: 1 0RF Rx Instructions: Check blood sugars 1x/day. (DME) OneTouch Ultra Test Strip See Rx Instructions .Route Qty: 100 2RF Rx Instructions: Check blood sugars 1x/day. (DME) lancing device with lancets [Accu-Chek Soft Dev Lancets] Kit See Rx Instructions .Route Qty: 1 0RF Rx Instructions: Check blood sugars 1x/day. (DME) lancets [Accu-Chek Softclix Lancets] [facility] See Rx Instructions .Route Qty: 100 2RF Rx Instructions: Check blood sugars 1x/day. Continued ibuprofen 800 mg tablet 800 mg PO BID PRN (Reason: Pain) Qty: 60 0RF Rx Instructions: unable to verify, no fill history available metaxalone 800 mg tablet 800 mg PO TID PRN (Reason: Pain) Qty: 15 0RF Rx Instructions: unable to verify, no fill history available famotidine 20 mg tablet 20 mg PO BID Qty: 60 2RF albuterol sulfate 90 mcg/actuation HFA aerosol inhaler 2 puff inhalation QID PRN (Reason: shortness of breath or wheezing) Qty: 8.5 0RF doxycycline hyclate 100 mg capsule 100 mg PO BID 5 Days Qty: 10 0RF Discharge Orders: Discharge Order (Routine); Ordered 08/17/24 Ordered By: Vincent Waters/Other Patient Handouts: A1C, How to Check Your Blood Sugar, 5 Steps for Eating Healthier, Exercise: Why Fitness Matters, Diabetes: Meal Planning, Understanding Type 2 Diabetes, Diabetes- Know Your Goal Numbers Admission Data Admit Date/Time: 08/15/24 15:53 Attending Provider: Vincent Bui Admit Provider: Jeremy Faith Primary Care Provider: Mera Sandoval Other Providers: Jeremy Faith Hospital Stay Data Consultations 08/15/24 15:21 ED Decision to Admit Stat Pending Results Patient Have Any Pending Studies at Discharge: Yes Discharge Instructions Given to Patient (Per Discharging Provider) Mr Amador, Hank were hospitalized due to pneumonia. The pneumonia was primarily in the upper lobe of the left lung. You improved while here with IV antibiotics. Your oxygen levels remained stable/normal while hospitalized. In addition to the above we found that you have early, mild type 2 diabetes (see handouts) Your hemoglobin a1c was 6.5% (see handout). Your diabetes can likely be controlled with diet alone. We also saw mild elevation in 2 of your liver function tests. I suspect that they may be mildly high due to your infection. These will need to be repeated in about 1 week. If they remain elevated over time, however, it is possible that they are high due to something called fatty liver. Recommendations - 1. Please finish the previously prescribed doxycycline antibiotic. Just finish the bottle as directed. Know that this antibiotic rarely causes a rash if you are out in the sun frequently while taking it. Thus, use sunscreen and cover up over the next few days. 2. Please take an additional antibiotic starting TONIGHT called cefdinir. Take cefdinir 300mg twice daily x 5 days. Thus, you will be on 2 different antibiotics for your pneumonia. Prescription for this additional antibiotic called in for you. 3. Have a repeat chest x-ray in 1 month to ensure the pneumonia has completely cleared radiographically. Your family doctor can arrange this for you. 4. Due to the diabetes please check your blood sugar at least 1x/day. Every morning upon awakening is a good time to do it. On some days check it at another time - bedtime, before your evening meal, etc. Write these numbers down and show them to your family doctor. See handouts on hemoglobin a1c, diabetes meal planning, steps on how to check a blood sugar, etc. I have prescribed you a glucometer and the necessary supplies. 5. For cough - * prescription benzonatate 100-200mg every 8 hours as needed * [id number] mucinex up to 1200mg twice daily as needed/as desired 6. If desired you can also use the previously prescribed albuterol inhaler every 4-6 hours as needed for cough/congestion/wheezing. 7. Due to the abnormal liver function tests would abstain from alcohol. 8. Plan to take it easy for 2-3 days as you recover. You will have to use your best judgement about returning to work. You might be able to go back late this week depending on how you feel, but it could be longer. 9. Please use your incentive spirometer & flutter valve for a few days during your recovery. Follow-up - see your family doctor in 1 week Return to [facility] if - * you have recurrent fevers over 101 degrees * you develop severe diarrhea * you have worsening shortness of breath * you have severe nausea and/or vomiting * any other concerns It was our pleasure to care for you! Coding Diagnoses CAP (community acquired pneumonia) J18.9 Laterality: left Lung location: upper lobe of lung Transaminitis R74.01 Type 2 diabetes mellitus E11.9
--- NOTE | 2024-08-18 05:23 | Electrocardiogram Report ---
Test Reason : Blood Pressure : */* mmHG Vent. Rate : 64 BPM Atrial Rate : 64 BPM P-R Int : 174 ms QRS Dur : 82 ms QT Int : 390 ms P-R-T Axes : -18 5 -12 degrees QTcB Int : 402 ms Normal sinus rhythm Cannot rule out Inferior infarct , age undetermined Abnormal ECG No previous ECGs available Confirmed by Lewis Matos ([id number]) on 08/18/2024 5:23:31 AM Referred By: REFERRED SELF Confirmed By: Lewis Matos
--- NOTE | 2024-08-18 05:28 | Electrocardiogram Report ---
Test Reason : Blood Pressure : */* mmHG Vent. Rate : 93 BPM Atrial Rate : 93 BPM P-R Int : 148 ms QRS Dur : 90 ms QT Int : 342 ms P-R-T Axes : 24 -37 49 degrees QTcB Int : 425 ms Sinus rhythm with Premature atrial complexes in a pattern of bigeminy Left axis deviation Abnormal ECG When compared with ECG of 15-Aug-2024 12:00, (unconfirmed) Premature atrial complexes are now Present QRS axis Shifted left Minimal criteria for Inferior infarct are no longer Present Nonspecific T wave abnormality no longer evident in Inferior leads Confirmed by Lewis Matos ([id number]) on 08/18/2024 5:28:04 AM Referred By: REFERRED SELF Confirmed By: Lewis Matos
== END 2024-08-17 12:10 | disposition home or self-care (01) | DRG 195 ==
LOC: ED 11:42 → 3W 15:53 → SUATTDRO 15:53 → 3W 16:43